=== PATIENT | female | born 1950 | race Caucasian/White ===

== ENCOUNTER 2018-09-27 10:52 | Emergency (ER) | payer OTHER ==
[~2018-09-27] VITALS: Ht 165.1 cm; Wt 113.4 kg
[2018-09-27] MEDS ORDERED: ACETAMINOPHEN/CODEINE 300MG - 30MG TAB PO ONE (12:00)
--- NOTE | 2018-09-27 12:25 | Diagnostic Imaging Report ---
Exam: Pelvis single frontal view, lumbar spine complete History: Midline L4-L5 pain Comparison: None. Findings: There are 5 nonrib-bearing lumbar-type vertebral bodies. No acute, displaced fracture or subluxation. Soft tissue, ligamentous, and spinal cord abnormalities cannot be excluded on the basis of plain radiography. No pars interarticularis defects are identified on the oblique radiographs. There is moderate multilevel disc space narrowing, endplate sclerosis, and marginal osteophytosis affecting L2-L3 through L5-S1 as well as the lower thoracic spine. Bilateral facet arthropathy at L4-5 and L5-S1. Sacroiliac joints are comparatively well maintained. The sacrum is obscured by rectal gas and stool; however, the sacral foramina appear intact superiorly. No displaced pelvic fracture. Femoral heads project appropriately over the acetabula. Hip joint spaces are relatively well-maintained. Impression: No acute osseous abnormality. Moderate multilevel degenerative disc disease and degenerative facet arthropathy worst at L4-5 and L5-S1. Signed by: Dr. Silvano Alejo M.D. on 09/27/2018 12:21 PM
[2018-09-27] MEDS ORDERED: ACETAMINOPHEN/CODEINE 300MG - 30MG TAB PO STA (12:35)
[2018-09-27] MEDS ORDERED: LOSARTAN POTASSIUM 100 MG TAB PO ONE (13:30)
[2018-09-27] MEDS ORDERED: TYLENOL WITH C1 EACH PO (14:22)
== END 2018-09-27 14:58 | disposition home or self-care (01) ==
LOC: ER 10:52
DX: M54.42 Lumbago with sciatica, left side (principal); I10 Essential (primary) hypertension; E11.9 Type 2 diabetes mellitus without complications; E78.5 Hyperlipidemia, unspecified; E66.9 Obesity, unspecified
CPT/HCPCS: 72110; 72170; 99284